=== PATIENT | female | born 1940 | race Caucasian/White ===

== ENCOUNTER → 2018-09-07 | Outpatient (CLI) | payer MEDICARE, OTHER | LOC: RAD 10:57 | DX: I71.4 Abdominal aortic aneurysm, without rupture (principal) | CPT/HCPCS: Q9967 ==

== ENCOUNTER → 2019-07-24 | Outpatient (CLI) | payer MEDICARE, OTHER | LOC: RAD 08:15 | PROVIDERS: Internal Medicine Interventional Cardiology | DX: I71.2 Thoracic aortic aneurysm, without rupture (principal) | CPT/HCPCS: Q9967 ==

== ENCOUNTER 2019-12-06 14:08 | Emergency (ER) | payer MEDICARE, OTHER ==
[~2019-12-06] VITALS: Ht 167.6 cm; Wt 77.3 kg
[2019-12-06 14:55] VITALS: BP 93/55
[2019-12-06] MEDS ORDERED: VOLTAREN GEL1% TP (15:44)
[2019-12-06] MEDS ORDERED: PROAIR HFA0.09 MG/AC IH (15:44)
[2019-12-06] MEDS ORDERED: PREVACID15 M1 PO (15:45)
[2019-12-06] MEDS ORDERED: BYSTOLIC10 MG PO (15:45)
[2019-12-06] MEDS ORDERED: HCTZ 25MG25 MG PO (15:45)
[2019-12-06] MEDS ORDERED: MULTIVITAMIN1 SGL PO (15:45)
[2019-12-06] MEDS ORDERED: TRAMADOL 50 MG TAB PO (15:46)
[2019-12-06] MEDS ORDERED: TIROSINT25 MC1 PO (15:46)
[2019-12-06] MEDS ORDERED: PROZAC20 M1 PO (15:46)
[2019-12-06] MEDS ORDERED: OTEZLA30 MG PO (15:46)
[2019-12-06] MEDS ORDERED: VITAMIN D22000 IU PO (15:46)
== END 2019-12-06 15:08 | disposition short-term general hospital (02) ==
LOC: ED 14:08
DX: K63.1 Perforation of intestine (nontraumatic) (principal); I48.91 Unspecified atrial fibrillation; I11.0 Hypertensive heart disease with heart failure; N18.9 Chronic kidney disease, unspecified; M54.5 Low back pain; G89.29 Other chronic pain; Z86.79 Personal history of other diseases of the circulatory system; Z90.49 Acquired absence of other specified parts of digestive tract; Z90.710 Acquired absence of both cervix and uterus; Z88.1 Allergy status to other antibiotic agents; Z88.8 Allergy status to other drugs, medicaments and biological substances
CPT/HCPCS: J3010

== ENCOUNTER → 2019-12-06 | Outpatient (CLI) | payer MEDICARE, OTHER ==
[~2019-12-06] MED LIST: BYSTOLIC10 MG PO; HCTZ 25MG25 MG PO; MULTIVITAMIN1 SGL PO; OTEZLA30 MG PO; PREVACID15 M1 PO; PROAIR HFA0.09 MG/AC IH; PROZAC20 M1 PO; TIROSINT25 MC1 PO; TRAMADOL 50 MG TAB PO; VITAMIN D22000 IU PO; VOLTAREN GEL1% TP
[2019-12-06 12:12] LABS: ALBUMIN 3.9 g/dL (3.4-4.8); POTASSIUM 3.8 mmol/L (3.5-5.1)
[2019-12-06 12:13] LABS: CALCIUM 9.8 mg/dL (8.3-10.5); EOS % 0.1 % (1.0-5.0); HEMATOCRIT 38.6 % (37.0-47.0); LYMPH# 2.3 (1.50-4.00); MEAN CELL VOLUME 86 fl (78-100); MEAN CORPUSCULAR HEMOGLOBIN 27 pg (27-31); MEAN CORPUSCULAR HGB CONC 31 g/dL (33-37); PLATELET COUNT 310 K/mm3 (130-400); RED CELL DISTRIBUTION WIDTH 15.2 % (11.5-14.5); WHITE BLOOD COUNT 19.4 K/mm3 (4.8-10.8)
[2019-12-06 12:14] LABS: TOTAL PROTEIN 7.9 g/dL (6.2-8.1)
[2019-12-06 13:36] LABS: URINE APPEARANCE HAZY; URINE BILIRUBIN NEGATIVE (NEGATIVE); URINE BLOOD NEGATIVE (NEGATIVE); URINE COLOR YELLOW; URINE GLUCOSE NEGATIVE (NEGATIVE); URINE KETONE NEGATIVE (NEGATIVE); URINE LEUKOCYTE ESTERASE NEGATIVE (NEGATIVE); URINE NITRATE NEGATIVE (NEGATIVE); URINE PROTEIN(semi-quant) NEGATIVE (NEGATIVE); URINE UROBILINOGEN NORMAL (NORMAL); URINE WBC 0-1 /hpf (0-3)
== END ==
LOC: RAD 11:50 → LAB 11:50
PROVIDERS: Physician Assistant
DX: K63.89 Other specified diseases of intestine (principal); Z90.710 Acquired absence of both cervix and uterus
CPT/HCPCS: Q9967

== ENCOUNTER 2020-01-07 15:30 | Outpatient (RCR) | payer MEDICARE, OTHER | END 2020-02-10 | disposition home or self-care (01) | LOC: CARDREHAB | DX: Z48.812 Encounter for surgical aftercare following surgery on the circulatory system (principal); I35.8 Other nonrheumatic aortic valve disorders ==

== ENCOUNTER → 2022-06-04 | Outpatient (CLI) | payer MEDICARE, OTHER ==
[2022-06-04 18:22] LABS: BASO # 0.02 K/mm3 (0.02-0.10); EOS # 0.04 K/mm3 (0.04-0.40); EOS % 0.4 % (1.0-5.0); HEMATOCRIT 42.1 % (37.0-47.0); HEMOGLOBIN 13.3 g/dL (12.5-16.0); LYMPH# 1.54 K/mm3 (1.50-4.00); MEAN CELL VOLUME 93 fl (78-100); MEAN CORPUSCULAR HEMOGLOBIN 29 pg (27-31); MEAN CORPUSCULAR HGB CONC 32 g/dL (33-37); MEAN PLATELET VOLUME 9.9 fl (7.4-10.4); PLATELET COUNT 204 K/mm3 (130-400); RED BLOOD COUNT 4.55 M/mm3 (4.10-5.30); RED CELL DISTRIBUTION WIDTH 14.4 % (11.5-14.5)
[2022-06-04 18:34] LABS: POTASSIUM 3.6 mmol/L (3.5-5.1)
[2022-06-04 18:36] LABS: TOTAL PROTEIN 7.5 g/dL (6.2-8.1)
[2022-06-04 18:38] LABS: TOTAL BILIRUBIN 0.6 mg/dL (0.2-1.2)
[2022-06-04 20:01] LABS: ERYTHROCYTE SEDIMENTATION RATE 50 mm/hr (0-30)
== END ==
LOC: LAB 18:04
PROVIDERS: Nurse Practitioner Family
DX: L08.9 Local infection of the skin and subcutaneous tissue, unspecified (principal)

== ENCOUNTER 2023-06-06 09:38 | Outpatient (RCR) | payer MEDICARE, OTHER ==
[~2023-06-06 09:38] MED LIST changes: +ALENDRONATE SOD70 MG PO; +FLUOXETINE40 MG PO; +JARDIANCE10 MG PO; +LANSOPRAZOLE30 M3 PO; +LEVOTHYROXIN0.075 MG PO; +QUETIAPINE FUMA25 M3 PO
== END 2023-06-23 | disposition home or self-care (01) ==
LOC: PT
DX: R29.6 Repeated falls (principal); R26.81 Unsteadiness on feet

== ENCOUNTER → 2024-05-01 | Outpatient (CLI) | payer MEDICARE, OTHER | LOC: LAB 11:05 | DX: I71.9 Aortic aneurysm of unspecified site, without rupture (principal) ==

== ENCOUNTER → 2024-05-02 | Outpatient (CLI) | payer MEDICARE, OTHER ==
[~2024-05-02] MED LIST changes: +Iohexol 350 - 100 ML VIAL IV ONE
== END ==
LOC: RAD 08:57
DX: I71.21 Aneurysm of the ascending aorta, without rupture (principal); R91.8 Other nonspecific abnormal finding of lung field
CPT/HCPCS: Q9967